=== PATIENT | male | born 1980 | race American Indian/Alaskan Native ===

== ENCOUNTER 2020-04-15 17:36 | Emergency (ER) | payer SELFPAY ==
[2020-04-15 18:32] VITALS: BP 130/81
--- NOTE | 2020-04-15 18:58 | Event Note ---
ED Screening Note Date of service: 04/15/20 Time: 18:55 ED Screening Note: Patient complains of right-sided chest pain x 2 days States pain with inspiration Denies history of MS or heart issues Patient states pain does worsen with movement of his right shoulder This initial assessment/diagnostic orders/clinical plan/treatment(s) is/are subject to change based on patients health status, clinical progression and re- assessment by fellow clinical providers in the ED. Further treatment and workup at subsequent clinical providers discretion. Patient/guardian urged not to elope from the ED as their condition may be serious if not clinically assessed and managed. Initial orders include: Labs EKG Chest x-ray
--- NOTE | 2020-04-15 19:13 | XRay Report ---
CHEST 2 VIEWS INDICATION / CLINICAL INFORMATION: Chest Pain. COMPARISON: None available. FINDINGS: SUPPORT DEVICES: None. HEART / MEDIASTINUM: No significant abnormality. LUNGS / PLEURA: No significant pulmonary or pleural abnormality. No pneumothorax. ADDITIONAL FINDINGS: No significant additional findings. IMPRESSION: 1. No acute abnormality of the chest. Signer Name: Madan Stevenson MD Signed: 04/15/2020 7:08 PM Workstation Name: [id number]
[2020-04-15 19:22] LABS: Basophils % (Auto) 0.5 % (0.0-1.8); Eosinophils # (Auto) 0.1 K/mm3 (0.0-0.4); Eosinophils % (Auto) 2.6 % (0.0-4.3); Hemoglobin 15.1 gm/dl (11.8-15.2); Lymphocytes # (Auto) 1.2 K/mm3 (1.2-5.4); Lymphocytes % (Auto) 25.6 % (13.4-35.0); Mean Corpuscular HGB Conc 34 % (32-34); Mean Corpuscular Volume 91 fl (84-94); Monocytes # (Auto) 0.4 K/mm3 (0.0-0.8); Monocytes % (Auto) 9.6 % (0.0-7.3); Platelet Count 232 K/mm3 (140-440); Red Blood Count 4.93 M/mm3 (3.65-5.03); Red Cell Distribution Width 14.1 % (13.2-15.2)
[2020-04-15 19:39] LABS: Alanine Aminotransferase 15 units/L (7-56); BUN/Creatinine Ratio 9; Blood Urea Nitrogen 8 mg/dL (9-20); Calcium 8.9 mg/dL (8.4-10.2); Hemolysis Index 10
[2020-04-15 19:40] LABS: Alanine Aminotransferase 16 units/L (7-56)
[2020-04-15 19:41] LABS: Bilirubin,Direct < 0.2 mg/dL (0-0.2)
--- NOTE | 2020-04-15 21:56 | Emergency Department Report ---
ED Chest Pain HPI - General Chief Complaint: Chest Pain Stated Complaint: CHEST PAIN Time Seen by Provider: 04/15/20 21:22 Source: patient, EMS Mode of arrival: Ambulatory Limitations: No Limitations - History of Present Illness Initial Comments: Mr. Mendoza has history of anxiety. He has had right sided chest pain for 4 days. He has had intermittent mild chest pressure. No association with exertion. Pain is worse with right arm movement. Denies shortness of breath. Reported to EMS that he needed assistance with homelessness. MD Complaint: chest pain -: Gradual, days(s) (4) Pain Location: right chest Severity: mild Quality: aching, sharp Consistency: now resolved Worsens With: movement (Arm movement) - Related Data Allergies Allergy/AdvReac Type Severity Reaction Status Date / Time No Known Allergies Allergy Unverified 04/15/20 17:37 Heart Score - HEART Score History: Slightly suspicious EKG: Normal Age: < 45 Risk factors: 1-2 risk factors Troponin: < normal limit HEART Score: 1 ED Review of Systems ROS: Stated complaint: CHEST PAIN Other details as noted in HPI Comment: All other systems reviewed and negative Constitutional: denies: fever, malaise Respiratory: denies: cough, shortness of breath Cardiovascular: chest pain ED Past Medical Hx - Past Medical History Previous Medical History?: Yes Additional medical history: anxiety - Surgical History Past Surgical History?: No - Social History Smoking Status: Current Every Day Smoker Substance Use Type: None ED Physical Exam - General Limitations: No Limitations General appearance: alert, in no apparent distress - Head Head exam: Present: atraumatic, normocephalic - Eye Eye exam: Present: normal appearance - ENT ENT exam: Present: mucous membranes moist - Neck Neck exam: Present: normal inspection, full ROM - Respiratory Respiratory exam: Present: normal lung sounds bilaterally. Absent: respiratory distress, wheezes, rales, rhonchi - Cardiovascular Cardiovascular Exam: Present: regular rate, normal rhythm, normal heart sounds. Absent: systolic murmur, diastolic murmur, rubs, gallop - GI/Abdominal GI/Abdominal exam: Present: soft, normal bowel sounds. Absent: distended, tenderness, guarding, rebound - Rectal Rectal exam: Present: deferred - Extremities Exam Extremities exam: Present: normal inspection - Neurological Exam Neurological exam: Present: alert, oriented X3 - Psychiatric Psychiatric exam: Present: normal affect, normal mood - Skin Skin exam: Present: warm, dry, intact, normal color. Absent: rash ED Course Vital Signs 04/15/20 17:56 Temperature 98.5 F Pulse Rate 73 Respiratory 16 Rate Blood Pressure 130/81 O2 Sat by Pulse 99 Oximetry ED Medical Decision Making - Lab Data Result diagrams: 04/15/20 19:07 04/15/20 19:07 Laboratory Results - last 24 hr 04/15/20 04/15/20 04/15/20 19:07 19:07 19:07 WBC 4.6 RBC 4.93 Hgb 15.1 Hct 45.0 MCV 91 MCH 31 MCHC 34 RDW 14.1 Plt Count 232 Lymph % (Auto) 25.6 [place] % (Auto) 9.6 H Eos % (Auto) 2.6 Baso % (Auto) 0.5 Lymph # 1.2 [place] # 0.4 Eos # 0.1 Baso # 0.0 Seg Neutrophils % 61.7 Seg Neutrophils # 2.9 Sodium 139 Potassium 3.6 Chloride 99.1 Carbon Dioxide 30 Anion Gap 14 BUN 8 L Creatinine 0.9 Estimated GFR > 60 BUN/Creatinine Ratio 9 Glucose 93 Calcium 8.9 Total Bilirubin 0.40 0.40 Direct Bilirubin < 0.2 Indirect Bilirubin 0.2 AST 16 16 ALT 15 16 Alkaline Phosphatase 89 91 Troponin T < 0.010 Total Protein 6.9 6.9 Albumin 4.0 4.0 Albumin/Globulin Ratio 1.4 1.4 - EKG Data EKG shows normal: sinus rhythm, axis, intervals, QRS complexes, ST-T waves Rate: normal - Radiology Data Radiology results: report reviewed Chest radiograph: No acute findings according radiology impression - Medical Decision Making Right-sided chest pain worse with arm movement: Atypical for ACS. No indication of pneumonia, pulmonary embolism, pneumothorax. No indication of pericarditis. EKG is normal. PERC negative for PE. Recommended heat ice therapy for chest wall pain. Heart score 1 Given referral to outpatient medical physician. Case management not available at this time to assist with homeless shelters. Critical care attestation.: If time is entered above; I have spent that time in minutes in the direct care of this critically ill patient, excluding procedure time. ED Disposition Clinical Impression: Chest wall pain Disposition: DC- TO HOME OR SELFCARE Is pt being admited?: No Does the pt Need Aspirin: No Condition: Stable Instructions: Chest Pain (ED) Referrals: MILDRED VILLANUEVA MD [Staff Physician] - 3-5 Days
== END 2020-04-15 22:05 | disposition home or self-care (01) ==
LOC: ED 17:36
DX: R07.89 Other chest pain (principal); R41.9 Unspecified symptoms and signs involving cognitive functions and awareness; F17.200 Nicotine dependence, unspecified, uncomplicated
CPT/HCPCS: 36415; 71046; 80053; 80076; 84484; 85025; 93005